=== PATIENT | female | born 1990 | race Two or more races ===

== ENCOUNTER 2025-02-12 06:15 | Day surgery (SDC) | payer MEDICAID, SELFPAY ==
[2025-02-11 07:26] VITALS: BMI 37.1
[2025-02-11 09:18] LABS: Basophils % (Auto) 1 % (0-2.5); Eosinophils # (Auto) 0.3 Thou/mm3 (0.0-0.5); Eosinophils % (Auto) 5 % (0-10); Hematocrit 39.3 % (36.0-46.0); Hemoglobin 12.5 g/dL (12.0-16.0); Immature Granulocytes % (Auto) 1 % (0-0); Immature Granulocytes Auto 0.03 Thou/mm3 (0.00-0.00); Lymphocytes # (Auto) 2.4 Thou/mm3 (1.0-4.8); Lymphocytes % (Auto) 38 % (10-50); Mean Corpuscular HGB Conc 31.8 g/dl (31.0-37.0); Mean Corpuscular Hemoglobin 23.9 pg (25.0-35.0); Mean Corpuscular Volume 75 fL (80-100); Monocytes # (Auto) 0.3 Thou/mm3 (0.0-0.8); Monocytes % (Auto) 5 % (0-12); Neutrophils # (Auto) 3.1 Thou/mm3 (1.8-7.7); Neutrophils % (Auto) 51 % (37-80); Nucleated Red Blood Cell % 0 /100 WBC (0); Platelet Count 475 Thou/mm3 (140-440); RDW Standard Deviation 39.7 fL (36.4-46.3); Red Blood Count 5.22 Miln/mm3 (4.00-5.20); White Blood Count 6.2 Thou/mm3 (3.6-11.0)
[2025-02-11 09:33] LABS: HCG,Qualitative Serum Negative
[2025-02-11 10:13] LABS: Hepatitis A Antibody IgM Non Reactive (Non React); Hepatitis B Core Antibody IgM Non Reactive (Non React); Hepatitis B Surface Antigen Non Reactive (Non React); Hepatitis C Antibody Non Reactive (Non React)
[2025-02-11 15:40] LABS: HIV (1&2) Antibody Rapid Non-Reactive
[2025-02-12] VITALS (7 sets, daily range): BP systolic 106–121; BP diastolic 57–74; PULSE 63–73; RESP 13–20; TEMP 36.4–36.7; O2SAT 96–100; BMI 37.2
--- NOTE | 2025-02-12 07:24 | CHAP ---
Visited with patient about her family and gave encouragement and prayer before her procedure.
[2025-02-12] MEDS: RINGERS LACTATED 1000 ML 1,000 ML 20 ML IV (07:27)
--- NOTE | 2025-02-12 07:57 | ESHP_ITS ---
Documentation for date of: 02/12/25 HISTOLOGIST TECHNOLOGIST - HPI History of Present Illness History of present illness: Ms. CARTER is a 34 year old female para 4 previous all vaginal delivery is admitted for laparoscopic bilateral salpingectomy. Patient desires sterilization and was counseled extensively regarding irreversibility of the procedure. Patient has signed the consent and understands that childbearing is no longer possible. Patient was also given multiple options of long-acting reversible contraception however does not agree to pursue any of them. Previous history of laparotomy for ovarian cyst removal in her teens. Meds Home Medications and Allergies Home Medications ?Medication ?Instructions ?Recorded ?Confirmed ?Type No Known Home Medications 02/11/25 04/0 12/07 History Allergies Allergy/AdvReac Type Severity Reaction Status Date / Time No Known Allergies Allergy Verified 02/12/25 07:12 Exam - HISTOLOGIST TECHNOLOGIST Vital Signs Temp Pulse Resp BP Pulse Ox 97.6 F 63 14 121/63 96 02/12/25 07:13 02/12/25 07:13 02/12/25 07:13 02/12/25 07:13 02/12/25 07:13 Constitutional Constitutional: no acute distress Routine HEENT Exam Head: Present normocephalic and atraumatic Eye: Present EOMI and PERRL ENT: Present mucous membranes moist Routine Neck Exam Neck: Present supple and trachea midline Routine Respiratory Exam Respiratory: Present chest non-tender, lungs clear, normal breath sounds and no resp distress Routine Cardiovascular Exam Cardiovascular: Present RRR Routine Abdominal Exam Abdominal: Present soft and normoactive bowel sounds Routine Extremities Exam Extremities: Present full ROM Routine Skin Exam Skin: Present intact and dry Routine Neurological Exam Neurological: Present alert, oriented X3 and CN II-XII intact Routine Psychiatric Exam Psychiatric: Present normal affect and normal thought process HISTOLOGIST TECHNOLOGIST - Results Labs 02/11/25 07:42 Labs: Short CBC 02/11/25 Range/Units 07:42 WBC 6.2 (3.6-11.0) Thou/mm3 Hgb 12.5 (12.0-16.0) g/dL Hct 39.3 (36.0-46.0) % Plt Count 475 H (140-440) Thou/mm3 Impressions Impression: 34-year-old para 4 previous vaginal delivery, admitted for bilateral salpingectomy laparoscopic for patient desire of sterilization Other options including long-acting reversible contraception discussed Irreversibility discussed on multiple occasions Assessment and Plan Additional Assessment & Plan Additional Plan: Boarded for laparoscopic bilateral salpingectomy No antibiotic needed DVT prophylaxis Quality Measures Quality Measures VTE prophylaxis
--- NOTE | 2025-02-12 10:26 | SUR.PHASEI ---
1026 Patient arrived to recovery resting comfortably in [facility], on oxygen 6L via oxy mask, oral airway removed upon arrival to recovery, patient able drowsy and able to follow verbal commands, breathing unlabored, vital signs stable, denies pain and nausea, dressing intact to abdomen; dermabond and to vaginal area; peripad, no bleeding noted, report received from Dr. Tolbert and Santiago ADAMS/Rebecca ADAMS
[2025-02-12] MEDS: fentaNYL CIT INJ 50 mCg/ML AMP 2ML 25 MCG IV (10:51)
--- NOTE | 2025-02-12 11:32 | SUR.PHASEII ---
1132 Patient meets discharge criteria from recovery, awake and alert, breathing unlabored, vital signs stable, per patient her pain is tolerable, dressing intact; no bleeding noted, patient ate a jello and drinking fluids; tolerating well, denies nausea, assisted with dressing into her clothing by this show card writer, discharge instructions given to patient and patients partner with teach-back approach, both receptive of instructions, partner signed discharge instructions. Patient given all her belongings prior to discharge, transported via wheelchair and left in a private vehicle
--- NOTE | 2025-02-26 10:58 | ESOP_ITS ---
Operative Note - CHIEF CLERK SHELTER Procedure Date of procedure: 02/12/25 Procedure Performed: Laparoscopic bilateral salpingectomy Indication: Desires sterilization Pre-Op diagnosis: Same Post-Op diagnosis: Same Anesthesia type: General Procedure description: Patient was taken to the operating room. General anesthesia was given without any complications.? A time out was given confirming Aide Oakes was undergoing the following, procedure,allergies, and surgeon.The patient was positioned in the dorsal lithotomy position. The bladder was emptied. The perineum was prepped with Betadine solution per routine.The abdomen was prepped with DuraPrep. Attention was then focused to the vagina.? A sponge placed in a ring forceps was placed in the posterior fornix and used as a uterine manipulator.? The surgeon then changed gloves to continue proper sterile technique. Attention was diverted to the abdomen. An umblical incision was first made, Two towel clips were placed lateral to the umbilicus in order to elevate the abdominal wall.? A hemostat was used to assess the depth to the fascia. While applying countertraction by lifting the towel clips, a Veress needle was used to enter the peritoneal cavity, a initial abdominal pressure of 12 mmHg was noted upon entry. Veress needle used for initial pneumoperitoneum establishment. 5 mm port used for the direct trocar entry the abdomen was then insufflated with CO2 gas to 15mmHg, under the opti-view system was advanced into the peritoneal entry.? The Right lower quadrant was evaluated and a 5-mm incision was made . 5-mm trocar placed under camera surveillance.? Left side evaluated and a 5mm trocar inserted under optiview surveillance. On observation: Normal anatomy with bilateral ovaries and tubes no peritoneal pathology identified. Using a laparoscopic Fernando grasper, gently right tube at the fimbrial end was picked up. Gradually , her right and left tube was from the mesosalpinx using Enseal device. Same repeated on the other side bilateral salpingectomy done, hemostasis ensured. All the bowel at the initial trocar entry point was examined no entry injuries were noted Estimated blood loss (ml): 5 Surgical staff Operation Date: 02/12/25 08:45 Case Staff Anesthesiologist: Elvis Tolbert RN First Assistant: Briana Eastman Diagnosis Problem List Completed Was Problem List Reviewed/Reconciled?: Yes
== END 2025-02-12 11:32 | disposition home or self-care (01) ==
PROVIDERS: PCP Family Medicine; Referring Provider Student in an Organized Health Care Education/Training Program; Visit Provider Student in an Organized Health Care Education/Training Program
PROC: (CPT 58720; principal; 2025-02-12 08:30)
DX: Z30.2 Encounter for sterilization (principal); Z64.1 Problems related to multiparity
CPT/HCPCS: 58661; 36415; 80074; 84703; 85025; 86703; 86850; 86900; 86901; A4217; A4649; J0131; J1100; J2250; J2405; J2704; J3010; J3490; J7120; A9270